=== PATIENT | male | born 1965 | race Caucasian/White ===

== ENCOUNTER 2024-03-30 10:17 | Outpatient (AMB) | payer MEDICAID, SELFPAY ==
--- NOTE | 2024-03-30 10:35 | ORTHONT_ITS ---
Vital signs 03/30/24 10:40 Height 1.68 m Height Method Stated Weight 73.964 kg Weight Measurement Method Standing Scale BMI 26.2 BP 118/75 Blood Pressure Source Automatic Cuff Blood Pressure Location Right Upper Arm Position Sitting Respiration 18 Pulse 75 Pulse Source Monitor Temp 98.3 F Temp Source Temporal Artery Scan Pulse Oximetry (%) 97 Oxygen Delivery Method Room Air Med/Allergies Allergies & Medications Allergies ibuprofen Allergy (Verified 03/30/24 10:41) Medication Reconciliation amlodipine 5 mg tablet 5 mg PO QDAY 03/30/24 [History Confirmed 03/30/24] aspirin 81 mg tablet,delayed release 81 mg PO QDAY 03/30/24 [History Confirmed 03/30/24] atorvastatin 40 mg tablet 40 mg PO QPM 03/30/24 [History Confirmed 03/30/24] clopidogrel 75 mg tablet (Plavix) 75 mg PO QDAY 03/30/24 [History Confirmed 03/30/24] lisinopril 40 mg tablet 40 mg PO QDAY 03/30/24 [History Confirmed 03/30/24] propranolol 10 mg tablet 5 mg PO BID 03/30/24 [History Confirmed 03/30/24] Subjective Visit Visit for: follow up visit (PRE OP) and knee (LEFT) Immunization / Flu Flu Vaccine in the Last 12 Months: No Flu Vaccine Exclusion Criteria: No Exclusion Criteria History of Present Illness Chief complaint: PRE OP LEFT TKA Yosvany is a pleasant 58-year-old male who has a longstanding history of bilateral knee pain. I previously saw him at a previous office. He has end- stage arthritis. He did have a recent stroke and we have still been treating conservatively until he is fully optimized for surgery. He reports that he believes that his transcription typist said that he can get surgery. Have given him a form for his transcription typist to fill out. He is on aspirin and Plavix. He is supposed to stop Plavix 7 days before surgery Personal History Red flag PMH: none Pain Pain level (0-10): 7 Pain duration: CONSTANT Pain location: inside (medial) Pain quality: sharp and aching Pain timing: night and increases with activity Associated signs & symptoms: weakness and stiffness Ambulatory data Ambulatory device: cane Treatments Improvement with previous injections: No Improvement with PT: No Improvement with NSAIDS: no Review of Systems Review of Systems: All systems negative unless otherwise noted in HPI. Exam Exam Patient is in no acute distress and is cooperative with the examination today. Breathing is nonlabored. In no respiratory distress. Bilateral extremities were evaluated and demonstrates sensation intact to light touch. Palpable pedal pulses are present. No significant edema is present. Bilateral hips were examined. The patient has no pain with log roll of the hips. Internal rotation to 30 degrees and external rotation to 30 degrees is painless. Negative FADIR. The left knee was examined. The left knee is in [varus] alignment. Range of motion from [0-115] degrees. Knee is stable to varus and valgus as well as AP translation with <5mm. Patient has a [negative] McMurrays. There is [no] pain with patellofemoral compression and [no] crepitus noted. The knee is [tender] to palpation [medially]. The right knee was also examined. The right knee is in [varus] alignment. Range of motion from [0-120] degrees. Knee is stable to varus and valgus as well as AP translation with <5mm. Patient has a [negative] McMurrays. There is [no] pain with patellofemoral compression and [no] crepitus noted. The knee is [tender] to palpation [medially]. Assessment and Plan Problem List (1) Degenerative arthritis of knee, bilateral: Status: Acute Plan: 58-year-old male with bilateral knee pain and bilateral knee arthritis. He has recent stroke. His left knee pain has significantly worsened The nature and purpose of the total knee replacement, alternative method(s) of t reatment, the material risks involved, and the possibility of complications were fully explained to the patient. The patient does NOT have any of the following contraindications to TKA: - Active infection of the knee joint, OR - Active systemic bacteremia, OR - Active skin infection or open wound at surgical site, OR - Neuropathic arthritis, OR - Severe, rapidly progressive neurological disease, OR - Severe medical condition that makes risks of surgery outweigh the potential benefit The patient was told the most common risks and complications associated with a total knee replacement include, but are not limited to: blood clots in the leg, fatal pulmonary embolism, dislocation of the prosthesis, intraoperative and postoperative fractures of the femur or tibia, infection, failure of the pros thesis or grafting materials, complications from anesthesia, reactions to blood transfusions, postoperative leg length inequality, instability of the knee replacement, nerve damage or injury, vascular injury, delayed wound healing, infection, other injury or even . In addition, there are risks associated with anesthesia given during this operation. Also, the patient was told that after undergoing a total knee replacement there may still be persistent pain or disability. The patient was informed that the success of this operation in part depends upon the mechanical devices which are going to be implanted and that these devices can fail or malfunction, and may need to be repaired or replaced and there are no guarantees as to the longevity of this device or its parts and that it or its parts could fail prematurely. The patient was also notified that during the course of surgery, there may be a need to use bone graft from donors, and that any bone graft used will be carefully screened for communicable diseases, including AIDS, hepatitis, Romie-Creutzfeldt, or other diseases, but despite the screening procedures, there is a small chance that they could contract one of these diseases. Finally, the patient was asked to follow completely and fully with all advice and recommended treatments, and that recovery and ultimate outcome are affected by their compliance with recommended treatment. We discussed the risks, benefits and treatment alternatives, and the patient is interested in proceeding with surgery. We will try to set this up as expeditiously as possible. (2) Bilateral knee pain: Status: Acute Office Procedures GNS Level of Care Nursing/Assessment Patient Status: Established Patient Nursing Assessment/Reassesment: Medication Reconciliation, Update PMH in EMR and Vital Signs Coordination of Care: Complex Care and Chronic Disease 1-5, Education Complex Pt/Fam, Consent,records obtained, informed consent, 1 Ins Authorization, Lab and Imaging orders, Results/Orders obtained and Staff clarify orders Established Patient Charge Established Patient Point Assignment: 125 Established Patient Point Charge: EP Level 4 (120-155) Past Medical History Past Medical History Have you ever been diagnosed with any of the following: Neurological Problems Cerebrovascular Accident (CVA): Yes (September 2022) Cardiology Problems Coronary Artery Disease: Yes Peripheral Vascular Disease: Yes (50% right internal carotid stenosis) Congestive Heart Failure: No Hypertension: Yes Respiratory Problems Chronic Obstructive Pulmonary Disease (COPD): No Smoking: No Smoking Exposure: No Stomache/Intestinal Problems Hepatitis: No Genital/Urinary Problems Renal Disease: No Musculoskeletal Problems Arthritis: Yes Head,Eye,Nose,Throat Problems Cataracts: Yes Endocrine Problems Diabetes Mellitus Type 1: No Diabetes Mellitus Type 2: No Other Problems Hospitalization: Yes (stroke) Shingles: No Blood Transfusions: No Anesthesia Reactions: No Chicken Pox: Yes Cancer: No
[2024-03-30 10:40] VITALS: BP 118/75; PULSE 75; RESP 18; TEMP 36.8; O2SAT 97; BMI 26.2
== END 2024-03-30 10:58 | disposition home or self-care (01) ==
PROVIDERS: PCP Internal Medicine; Referring Provider Internal Medicine; Supervising Provider Orthopaedic Surgery Adult Reconstructive Orthopaedic Surgery; Visit Provider Orthopaedic Surgery Adult Reconstructive Orthopaedic Surgery
DX: M17.0 Bilateral primary osteoarthritis of knee (principal); M25.561 Pain in right knee; M25.562 Pain in left knee; I10 Essential (primary) hypertension; I25.10 Atherosclerotic heart disease of native coronary artery without angina pectoris; Z86.73 Personal history of transient ischemic attack (TIA), and cerebral infarction without residual deficits
CPT/HCPCS: 99214; G0463

== ENCOUNTER → 2024-03-30 | Outpatient (CLI) | payer MEDICAID, SELFPAY ==
--- NOTE | 2024-03-30 11:52 | XR_ITS ---
Examination: CT left lower extremity, without contrast. 2-D sagittal reconstructions. 2-D coronal reconstructions. 3-D reconstructions. Date and time of exam:March 30, 2024 1357 hours INDICATIONS: Left knee pain osteoarthritis one year CTDI: vol (mGy):9.03 DLP: (mGycm):723 Technique: Multiple 1.25 mm axial sections of the left lower extremity without intravenous contrast have been obtained. 2-D sagittal and coronal reconstructions have been obtained. 3-D reconstructions have been obtained. Low dose protocols were performed. One or more of the following dose reduction techniques were used; automated exposure control, adjustment of the mA and/or KV according to patient size, use of iterative reconstruction technique. Findings: Moderate osteopenia Mild narrowing left hip joint No left hip fracture or dislocation, no avascular necrosis Advanced left knee tricompartment osteoarthritis, severe narrowing medial lateral joint spaces No fracture No patellar dislocation IMPRESSION: Severe left knee tricompartment osteoarthritis
== END | disposition home or self-care (01) ==
LOC: CCTX 11:33
PROVIDERS: PCP Internal Medicine; Referring Provider Orthopaedic Surgery Adult Reconstructive Orthopaedic Surgery; Visit Provider Orthopaedic Surgery Adult Reconstructive Orthopaedic Surgery
DX: M17.12 Unilateral primary osteoarthritis, left knee (principal)
CPT/HCPCS: 73700

== ENCOUNTER 2024-04-03 07:30 | Day surgery (SDC) | payer MEDICAID, SELFPAY ==
[2024-03-30 09:10] VITALS: BMI 26.3
--- NOTE | 2024-03-30 09:27 | EKG_ITS ---
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
[2024-03-30 10:10] LABS: Basophils % (Auto) 0 % (0-2.5); Eosinophils # (Auto) 0.1 Thou/mm3 (0.0-0.5); Eosinophils % (Auto) 1 % (0-10); Hemoglobin 14.7 g/dL (13.5-16.0); Immature Granulocytes % (Auto) 0 % (0-0); Immature Granulocytes Auto 0.03 Thou/mm3 (0.00-0.00); Lymphocytes # (Auto) 2.2 Thou/mm3 (1.0-4.8); Lymphocytes % (Auto) 21 % (10-50); Mean Corpuscular HGB Conc 33.4 g/dl (31.0-37.0); Mean Corpuscular Hemoglobin 29.6 pg (25.0-35.0); Mean Corpuscular Volume 89 fL (80-100); Monocytes # (Auto) 0.6 Thou/mm3 (0.0-0.8); Monocytes % (Auto) 6 % (0-12); Neutrophils # (Auto) 7.5 Thou/mm3 (1.8-7.7); Neutrophils % (Auto) 72 % (37-80); Nucleated Red Blood Cell % 0 /100 WBC (0); Platelet Count 299 Thou/mm3 (140-440); RDW Standard Deviation 40.1 fL (35.1-43.9); Red Blood Count 4.96 Miln/mm3 (4.50-5.90); White Blood Count 10.5 Thou/mm3 (3.8-10.6)
[2024-03-30 10:22] LABS: Alanine Aminotransferase 29 U/L (10-49); Albumin, Serum 5.1 gm/dL (3.5-5.0); Albumin/Globulin Ratio 1.9 (1.2-2.2); Alkaline Phosphatase 166 U/L (46-116); Anion Gap 6 (7-16); Aspartate Amino Transferase 27 U/L (0-34); BUN/Creatinine Ratio 20 Ratio (12-20); Blood Urea Nitrogen 14 mg/dL (9-23); Calcium 10.1 mg/dL (8.3-10.6); Calcium (Corrected) 10.1 mg/dL (8.5-10.1); Carbon Dioxide 30.4 mMol/L (20.0-31.0); Chloride 100 mMol/L (98-107); Creatinine (Component) 0.7 mg/dL (0.6-1.3); Estimated Creatinine Clearance 103.8 mL/min (>60); Globulin 2.7 gm/dL (2.3-3.5); Glucose 103 mg/dL (74-106); Osmolality,Calculated 272 (275-295); Sodium 136 mMol/L (136-145); Total Protein 7.8 gm/dL (5.7-8.2); eGFR > 60 See Note
[2024-03-30 10:29] LABS: INR 1.1 (0.9-1.3); Partial Thromboplastin Time 28.5 Seconds (22.0-36.0); Prothrombin Time 11.9 Seconds (9.0-12.2)
[2024-04-03] VITALS (15 sets, daily range): BP systolic 121–166; BP diastolic 69–98; PULSE 67–91; RESP 12–18; TEMP 36.1–37.2; O2SAT 94–100; BMI 25.8
[2024-04-03] MEDS: ACETAMINOPHEN 325 MG TABLET 650 MG PO (08:22)
[2024-04-03] MEDS: PREGABALIN 75 MG CAPSULE PO (08:24)
[2024-04-03] MEDS: RINGERS LACTATED 1000 ML 1,000 ML 20 ML IV (08:25)
--- NOTE | 2024-04-03 10:39 | ESOP_ITS ---
Date of Procedure 04/03/24 Pre Op Diagnosis left knee osteoarthritis Post Op Diagnosis left knee osteoarthritis Procedure left total knee replacement Findings full thickness cartilage loss and osteophytes Procedure Description Indication: The patient is a 58 year old who has a long history of left knee pain. X-rays show degenerative arthritis involving the knee. Over the past several years the patient has had increasing pain, progressive limitation in function. He has failed conservative measures including activity modification, physical therapy, injections, anti-inflammatories, and assistive devices. After a lengthy discussion of the risks and benefits, the patient presents now for total knee replacement. The nature and purpose of the total knee replacement, alternative method(s) of treatment, the material risks involved, and the possibility of complications were fully explained to the patient. The patient was told the most common risks and complications associated with a total knee replacement include, but are not limited to blood clots in the leg, fatal pulmonary embolism, dislocation of the prosthesis, intraoperative and postoperative fractures of the femur or tibia, infection, failure of the prosthesis or grafting materials, complications from anesthesia, reactions to blood transfusions, postoperative leg length inequality, instability of the knee replacement, nerve damage or injury, vascular injury, delayed wound healing, infections, other injury or even . In addition, there are risks associated with anesthesia given during this operation, temporary or permanent numbness on the skin lateral to the incision can be a complication unique to total knee surgery, and kneeling can be painful after knee replacement surgery. Also, the patient was told that after undergoing a total knee replacement there may still be pain or disability. We discussed with the patient that we will be using a robot-assisted technology. We discussed that there is a possibility of converting to manual instrumentation. The patient was informed that the success of this operation in part depends upon the mechanical devices which are going to be implanted and that these devices can fail or malfunction, and may need to be repaired or replaced and there are no guarantees as to the longevity of this device or its part and that it or its parts could fail prematurely. Finally, the patient was asked to follow completely and fully with all advice and recommended treatments, and that recovery and ultimate outcome are affected by their compliance with recommended treatment. Surgical technique: Patient was marked and consented in the pre-operative area. The patient was brought to the operating room and placed on the operating table in a supine position. Prior to positioning, a timeout procedure was performed between the surgeon, the anesthesiologist, and the nursing staff where the patient and the operative side were identified and confirmed. After adequate general anesthetic was obtained, the left lower extremity was prepped and draped in the usual sterile fashion. A weight based dose of Cefazolin were administered within 1 hour prior to incision. The robot was preregistered and calirated before the incision. The extremity was exsanguinated with an esmarch badge and tourniquet inflated to 250mmHg. A midline incision was made. A median parapatellar arthrotomy was made. The patella was subluxed laterally. A medial release was performed to expose the medial tibia. His femoral and tibial pins were placed through an intra incisional manner for both cases. Every effort was made to ensure that the distalmost aspect of the pin was hung in the second cortex. The arrays were then tightened several times to ensure that it was fixed for the remainder of the case. Both femoral and tibial checkpoints were then placed. We then went through the registration process of the bone. We then assessed the knee deformity and attempted to correct it. We also used the robot to aid in judging laxity in both extension and flexion. Final based on laxity and alignment we changed the preoperative assessment to obtain proper proper implant positioning and to correct deformity. Attention was then placed to the tibia. We made a tibial cut using the robot ensuring that both the MCL and the patella tendon were protected with retractors. We then went to the femur and made the posterior cut followed by the anterior cut and the anterior chamfer. The bone was then removed and we made a distal femur cut and a posterior chamfer cut. We verified all cuts. A trial reduction was performed with a size 5 femoral component and a size 5 keeled tibial component. The patella tracked centrally, and no lateral re tinacular release was necessary. The trial implants were removed. The arrays, pins, and checkpoints were all removed. We performed a verification that all pins were removed. The cut bone surfaces were lavaged. A size 5 left femoral component, a size 5 keeled tibial component, were impacted into position. The knee was felt to be well balanced in the sagittal and coronal plane. The final 5x12 mm cruciate- substituting articular insert was impacted into the tibial tray. The knee was brought out to full extension, flexed up to 120 degrees. It was stable to varus and valgus stress and appropriately balanced in flexion and extension. The wounds were copiously irrigated following deflation of tourniquet. The medial retinaculum was reapproximated with #1 vicryl and quill. The subcutaneous tissues were closed with 0 and 2-0 interrupted Vicryl. The skin was closed with 3-0 Monofilament V loc suture. A sterile dressing was applied. The patient was transferred to a bed and brought to recovery in stable condition. The patient tolerated the procedure well. There were no intraoperative complications. Sponge and needle counts were correct times 2. As the attending surgeon, I attest I was present and performed the entire operation. Grafts/Implants Size 5 CR Femur Size 5 Tibia 12mm poly CS Anesthesia GETA Implants arpit triathlon Pathology / specimen None Pathology comment: none Estimated Blood Loss 150 Surgeon Pepe Duron MD Surgical Staff Operation Date: 04/03/24 10:00 Case Staff TRANSACTION ADVISORY SERVICES MANAGER: Manpreet Dailey RNbakery deliverer: Larry Reynaga
--- NOTE | 2024-04-03 10:56 | SUR.PHASEI ---
pt received from OR in recovery bay 7. pt obtunded, breathing unlabored on nc 6l, lma in place. v/s stable. pt dressing to left lower extremity cdi. report received from Adair HUERTAS and Rory ADEN.
--- NOTE | 2024-04-03 11:22 | XR_ITS ---
Examination: Right knee 2 views Technique : AP lateral right knee 2 views INDICATIONS: Postop knee replacement FINDINGS: Mild osteopenia Total right knee arthroplasty. Satisfactory alignment No fracture IMPRESSION: Total right knee arthroplasty with satisfactory alignment
--- NOTE | 2024-04-03 13:00 | SUR.PHASEII ---
report from nurse samuel. vss. breathing even and unlabored on room air. denies pain and nausea. dressing to left knee cdi. tolerating po liquids.
--- NOTE | 2024-04-03 13:30 | SUR.PHASEII ---
report called to nurse malik and given to nurse baker.
--- NOTE | 2024-04-03 13:30 | SUR.PHASEII ---
taken to room 350 via gurney. transferred to bed with trapeze in place. dressing remains cdi. vss. breathing even and unlabored. , daughter and nurse helena at bedside.
[2024-04-03] MEDS: oxyCODONE HCL 5 MG IR TAB 10 MG PO ×2 (14:30→20:32)
[2024-04-03] MEDS: ACETAMINOPHEN 500 MG TABLET 1000 MG PO (18:09)
[2024-04-03] MEDS: ASPIRIN EC 81 MG TABEC PO (20:32)
[2024-04-03] MEDS: HYDROmorphone INJ 2 MG/ML VIAL 0.5 MG IVP (22:05)
[2024-04-04] VITALS: BP 130/89; PULSE 102; RESP 18; TEMP 37.1; O2SAT 95
[2024-04-04] MEDS: ACETAMINOPHEN 500 MG TABLET 1000 MG PO ×2 (00:51→05:05)
[2024-04-04] MEDS: oxyCODONE HCL 5 MG IR TAB 10 MG PO ×2 (03:02→10:09)
[2024-04-04 04:00] VITALS: BP 118/83; PULSE 112; RESP 18; TEMP 37.2; O2SAT 93
[2024-04-04 07:31] VITALS: BP 123/77; PULSE 101; RESP 18; TEMP 37.2; O2SAT 94
[2024-04-04] MEDS: ASPIRIN EC 81 MG TABEC PO (08:02)
[2024-04-04] MEDS: PANTOPRAZOLE INJ 40 MG VIAL IV (08:02)
[2024-04-04 12:00] VITALS: BP 137/84; PULSE 106; RESP 18; TEMP 37.6; O2SAT 94
--- NOTE | 2024-04-04 12:04 | PC.SS ---
Patient is alert/oriented. He resides at home with spouse. Independent with ADL's. Patient has a walker at home he uses as needed. Patient admitted for left knee replacemtent. He had surgery yesterday. Patient worked with PT today. PT recommended Home Health services. Patient states his pcp: Dr. King at [facility] in [place]. Last appt. was last week. Patient's alt medical decision maker is his . Patient states he already has a walker at home. He is now requesting a 3:1 commode. Explained we need a doctor's order for this. sent 's office a request for DME. D/c orders for today.
--- NOTE | 2024-04-04 14:30 | PC.SS ---
Patient needs a 3:1 commode for home. Patient is physically incapable of utilizing regular toilet facilities because his or her diagnosis confines the patient to a single room. Patient is confined to a single level, and there is no toilet on that level; patient cannot access the toilet facilities in a timely manner due to lack of ambulation.
== END 2024-04-04 12:31 | disposition home or self-care (01) ==
LOC: S2EX 12:14 → S3NX 04-04 10:58
PROVIDERS: Anesthesiology; PCP Internal Medicine; Referring Provider Orthopaedic Surgery Adult Reconstructive Orthopaedic Surgery; Visit Provider Orthopaedic Surgery Adult Reconstructive Orthopaedic Surgery
PROC: (CPT 27447; principal; 2024-04-03 10:00)
DX: M17.12 Unilateral primary osteoarthritis, left knee (principal); Z01.810 Encounter for preprocedural cardiovascular examination
CPT/HCPCS: 27447; 36415; 73560; 80053; 85025; 85610; 85730; 87081; 93005; 97162; A4217; C1713; C1776; J0131; J0171; J0690; J1885; J2250; J2470; J2704; J2795; J3010; J3490; J7030; J7120; A4648; A4649; A9270

== ENCOUNTER 2024-04-25 12:54 | Outpatient (AMB) | payer MEDICAID, SELFPAY ==
--- NOTE | 2024-04-25 13:11 | RHCORTHONT_ITS ---
Vital signs 04/25/24 13:12 Weight 70.392 kg Weight Measurement Method Standing Scale BP 104/69 Blood Pressure Source Automatic Cuff Blood Pressure Location Right Upper Arm Position Sitting Respiration 19 Pulse 92 Pulse Source Monitor Temp 97.3 F Temp Source Temporal Artery Scan Pulse Oximetry (%) 95 Oxygen Delivery Method Room Air Med/Allergies Allergies & Medications Allergies ibuprofen Allergy (Verified 04/25/24 13:15) Medication Reconciliation amlodipine 5 mg tablet 5 mg PO QDAY 03/30/24 [History Confirmed 04/25/24] aspirin 81 mg tablet,delayed release 81 mg PO QDAY 03/30/24 [History Confirmed 04/25/24] atorvastatin 40 mg tablet 40 mg PO QPM 03/30/24 [History Confirmed 04/25/24] clopidogrel 75 mg tablet (Plavix) 75 mg PO QDAY 03/30/24 [History Confirmed 04/25/24] lisinopril 40 mg tablet 40 mg PO QDAY 03/30/24 [History Confirmed 04/25/24] propranolol 10 mg tablet 5 mg PO BID 03/30/24 [History Confirmed 04/25/24] doxycycline hyclate 100 mg tablet 100 mg PO BID #14 tabs 04/03/24 [Rx Confirmed 04/25/24] gabapentin 300 mg capsule 300 mg PO .qhs #30 caps 04/03/24 [Rx Confirmed 04/25/24] sennosides 8.6 mg-docusate sodium 50 mg tablet (Senna-S) 1 tab-cap PO QDAY #30 tabs 04/03/24 [Rx Confirmed 04/25/24] acetaminophen 500 mg tablet (Acetaminophen Extra Strength) 1,000 mg (2 x 500 mg) PO Q6H PRN pain #90 tabs 04/25/24 [Rx] cyclobenzaprine 5 mg tablet 5 mg PO QHS PRN muscle spasm #30 tabs 04/25/24 [Rx] oxycodone 5 mg tablet 5 mg PO Q6H PRN pain #28 tabs 04/25/24 [Rx] Exam Exam Patient is in no acute distress and is cooperative with the examination today. Breathing is nonlabored. In no respiratory distress. Bilateral extremities were evaluated and demonstrates sensation intact to light touch. Palpable pedal pulses are present. No significant edema is present. Bilateral hips were examined. The patient has no pain with log roll of the hips. Internal rotation to 30 degrees and external rotation to 30 degrees is painless. Negative FADIR. Left knee incision is clean dry and intact Assessment and Plan Problem List (1) History of total left knee replacement: Status: Acute Plan: Patient is doing well status post left total knee replacement. We will see him back in approximately 4 weeks Office Procedures GNS Level of Care Nursing/Assessment Patient Status: Established Patient Nursing Assessment/Reassesment: Medication Reconciliation, Update PMH in EMR and Vital Signs Coordination of Care: Complex Care and Chronic Disease 1-5, Education Complex Pt/Fam, Consent,records obtained, informed consent, 1 Ins Authorization, Results/Orders obtained and Staff clarify orders Special Needs: Language special needs Established Patient Charge Established Patient Point Assignment: 110 Established Patient Point Charge: EP Level 3 (80-115) MA Intake Visit Data Collection New Patient or Established: Established Patient (seen at [facility] within 3 years) Reason for Visit:: 2 week post op 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 PCP or OBGYN visit in last 3 months: Yes Hx Now: No Do You Feel Safe at Home: Yes Authorities Contacted: N/A Questionairres Past Medical History Past Medical History Have you ever been diagnosed with any of the following: Neurological Problems Cerebrovascular Accident (CVA): Yes (September 2022) Seizures: No Cardiology Problems Coronary Artery Disease: Yes Peripheral Vascular Disease: Yes (50% right internal carotid stenosis) Congestive Heart Failure: No Hypertension: Yes Respiratory Problems Chronic Obstructive Pulmonary Disease (COPD): No Smoking: No Smoking Exposure: No Stomache/Intestinal Problems Hepatitis: No Genital/Urinary Problems Renal Disease: No Musculoskeletal Problems Arthritis: Yes Head,Eye,Nose,Throat Problems Cataracts: Yes Endocrine Problems Diabetes Mellitus Type 1: No Diabetes Mellitus Type 2: No Psychologic Problems Depression: Yes Anxiety: Yes Other Problems Hospitalization: Yes (stroke) Shingles: No Blood Transfusions: No Anesthesia Reactions: No Chicken Pox: Yes Cancer: No Subjective Visit Visit for: follow up visit, post op #1 and knee Immunization / Flu Flu Vaccine in the Last 12 Months: Yes Flu Vaccine Exclusion Criteria: No Exclusion Criteria History of Present Illness Chief complaint: 2 week post op Aidan is 2 weeks postop status post total knee replacement. He is doing well. He has minimal pain Personal History BMI Counceling provided: No Pain Pain level (0-10): 8 Pain duration: all day Pain location: anterior and posterior Pain quality: sharp, dull and aching Pain timing: night and increases with activity Associated signs & symptoms: numbness Ambulatory data Ambulatory device: walker Treatments Improvement with previous injections: No Improvement with PT: No Improvement with NSAIDS: n/a Review of Systems Review of Systems: All systems negative unless otherwise noted in HPI.
[2024-04-25 13:12] VITALS: BP 104/69; PULSE 92; RESP 19; TEMP 36.3; O2SAT 95
== END 2024-04-25 13:36 | disposition home or self-care (01) ==
PROVIDERS: PCP Internal Medicine; Referring Provider Internal Medicine; Supervising Provider Orthopaedic Surgery Adult Reconstructive Orthopaedic Surgery; Visit Provider Orthopaedic Surgery Adult Reconstructive Orthopaedic Surgery
DX: Z96.652 Presence of left artificial knee joint (principal); I10 Essential (primary) hypertension; I25.10 Atherosclerotic heart disease of native coronary artery without angina pectoris
CPT/HCPCS: 99213; G0463

== ENCOUNTER 2024-05-23 08:01 | Outpatient (AMB) | payer MEDICAID, SELFPAY ==
[2024-05-23 08:07] VITALS: BP 127/84; PULSE 88; RESP 18; TEMP 36.4; O2SAT 98; BMI 25.5
--- NOTE | 2024-05-23 08:07 | ORTHONT_ITS ---
Vital signs 05/23/24 08:07 Height 1.68 m Height Method Stated Weight 72.121 kg Weight Measurement Method Standing Scale BMI 25.5 BP 127/84 Blood Pressure Source Automatic Cuff Blood Pressure Location Left Upper Arm Position Sitting Respiration 18 Pulse 88 Pulse Source Monitor Temp 97.5 F Temp Source Temporal Artery Scan Pulse Oximetry (%) 98 Oxygen Delivery Method Room Air Med/Allergies Allergies & Medications Allergies ibuprofen Allergy (Verified 05/23/24 08:08) Medication Reconciliation amlodipine 5 mg tablet 5 mg PO QDAY 03/30/24 [History Confirmed 05/23/24] aspirin 81 mg tablet,delayed release 81 mg PO QDAY 03/30/24 [History Confirmed 05/23/24] atorvastatin 40 mg tablet 40 mg PO QPM 03/30/24 [History Confirmed 05/23/24] clopidogrel 75 mg tablet (Plavix) 75 mg PO QDAY 03/30/24 [History Confirmed 05/23/24] lisinopril 40 mg tablet 40 mg PO QDAY 03/30/24 [History Confirmed 05/23/24] propranolol 10 mg tablet 5 mg PO BID 03/30/24 [History Confirmed 05/23/24] doxycycline hyclate 100 mg tablet 100 mg PO BID #14 tabs 04/03/24 [Rx Confirmed 05/23/24] gabapentin 300 mg capsule 300 mg PO .qhs #30 caps 04/03/24 [Rx Confirmed 05/23/24] sennosides 8.6 mg-docusate sodium 50 mg tablet (Senna-S) 1 tab-cap PO QDAY #30 tabs 04/03/24 [Rx Confirmed 05/23/24] acetaminophen 500 mg tablet (Acetaminophen Extra Strength) 1,000 mg (2 x 500 mg) PO Q6H PRN pain #90 tabs 04/25/24 [Rx Confirmed 05/23/24] cyclobenzaprine 5 mg tablet 5 mg PO QHS PRN muscle spasm #30 tabs 04/25/24 [Rx Confirmed 05/23/24] oxycodone 5 mg tablet 5 mg PO Q6H PRN pain #28 tabs 04/25/24 [Rx Confirmed 05/23/24] Exam Exam Patient is in no acute distress and is cooperative with the examination today. Breathing is nonlabored. In no respiratory distress. Bilateral extremities were evaluated and demonstrates sensation intact to light touch. Palpable pedal pulses are present. No significant edema is present. Bilateral hips were examined. The patient has no pain with log roll of the hips. Internal rotation to 30 degrees and external rotation to 30 degrees is painless. Negative FADIR. Left knee incision is clean dry and intact. Range of motion is 5 to 65 degrees Assessment and Plan Problem List (1) History of total left knee replacement: Status: Acute Plan: Patient istatus post left total knee replacement. He has stiffness in his left knee can only get to 65 degrees. I feel a firm stop. I discussed with him there are 2 options. Option 1 is to continue with physical therapy to regain his motion. Option 2 is to undergo a manipulation under anesthesia right now given his poor range of motion. We discussed the risks of both and he like to proceed. We also discussed the risk of recurrent stiffness as well as possible fracture during the manipulation. We will plan to do this is soon as possible Office Procedures GNS Level of Care Nursing/Assessment Patient Status: Established Patient Nursing Assessment/Reassesment: Medication Reconciliation, Update PMH in EMR and Vital Signs Coordination of Care: Complex Care and Chronic Disease 1-5, Education Complex Pt/Fam, Consent,records obtained, informed consent, Results/Orders obtained and Staff clarify orders Established Patient Charge Established Patient Point Assignment: 95 Established Patient Point Charge: EP Level 3 (80-115) MA Intake Visit Data Collection New Patient or Established: Established Patient (seen at [facility] within 3 years) Reason for Visit:: L TKA FOLLOW UP Seen by Clinical Staff ONLY (RN/MA): No 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: No PCP or OBGYN visit in last 3 months: Yes Hx Now: No Do You Feel Safe at Home: Yes Authorities Contacted: N/A Questionairres Past Medical History Past Medical History Have you ever been diagnosed with any of the following: Neurological Problems Cerebrovascular Accident (CVA): Yes (September 2022) Seizures: No Cardiology Problems Coronary Artery Disease: Yes Peripheral Vascular Disease: Yes (50% right internal carotid stenosis) Congestive Heart Failure: No Hypertension: Yes Respiratory Problems Chronic Obstructive Pulmonary Disease (COPD): No Smoking: No Smoking Exposure: No Stomache/Intestinal Problems Hepatitis: No Genital/Urinary Problems Renal Disease: No Musculoskeletal Problems Arthritis: Yes Head,Eye,Nose,Throat Problems Cataracts: Yes Endocrine Problems Diabetes Mellitus Type 1: No Diabetes Mellitus Type 2: No Psychologic Problems Depression: Yes Anxiety: Yes Other Problems Hospitalization: Yes (stroke) Shingles: No Blood Transfusions: No Anesthesia Reactions: No Chicken Pox: Yes Cancer: No Surgical History Total Knee Replacement: Yes (LEFT 03/2024) Subjective Visit Visit for: follow up visit and knee (LEFT) Immunization / Flu Flu Vaccine in the Last 12 Months: No Flu Vaccine Exclusion Criteria: No Exclusion Criteria History of Present Illness Chief complaint: Left knee pain Patricio is a 58-year-old male with a left knee pain and a total knee replacement 6 weeks ago. He did obtain x-rays. This demonstrates a cementless total knee replacement the liner position. He reports that he is stiff and he is working with therapy. Pain Pain level (0-10): 2 Pain duration: ON AND OFF Pain location: inside (medial) Pain quality: aching and other (specify) (SWELLING) Associated signs & symptoms: none Ambulatory data Ambulatory device: cane Treatments Improvement with previous injections: No Improvement with PT: No Improvement with NSAIDS: no Review of Systems Review of Systems: All systems negative unless otherwise noted in HPI.
== END 2024-05-23 08:28 | disposition home or self-care (01) ==
LOC: HODSRG 08:01
PROVIDERS: Supervising Provider Orthopaedic Surgery Adult Reconstructive Orthopaedic Surgery; Visit Provider Orthopaedic Surgery Adult Reconstructive Orthopaedic Surgery
DX: Z96.652 Presence of left artificial knee joint (principal); M25.662 Stiffness of left knee, not elsewhere classified; I10 Essential (primary) hypertension; I25.10 Atherosclerotic heart disease of native coronary artery without angina pectoris; Z86.73 Personal history of transient ischemic attack (TIA), and cerebral infarction without residual deficits
CPT/HCPCS: 99213; G0463

== ENCOUNTER 2024-05-31 05:40 | Day surgery (SDC) | payer MEDICAID, SELFPAY ==
[2024-05-26 09:42] VITALS: BMI 25.0
[2024-05-26 10:29] LABS: Basophils # (Auto) 0.1 Thou/mm3 (0.0-0.2); Basophils % (Auto) 1 % (0-2.5); Eosinophils # (Auto) 0.2 Thou/mm3 (0.0-0.5); Eosinophils % (Auto) 2 % (0-10); Hematocrit 39.9 % (41.0-53.0); Hemoglobin 12.9 g/dL (13.5-16.0); Immature Granulocytes % (Auto) 0 % (0-0); Immature Granulocytes Auto 0.02 Thou/mm3 (0.00-0.00); Lymphocytes # (Auto) 1.8 Thou/mm3 (1.0-4.8); Lymphocytes % (Auto) 18 % (10-50); Mean Corpuscular HGB Conc 32.3 g/dl (31.0-37.0); Mean Corpuscular Hemoglobin 27.9 pg (25.0-35.0); Mean Corpuscular Volume 86 fL (80-100); Monocytes # (Auto) 0.7 Thou/mm3 (0.0-0.8); Monocytes % (Auto) 7 % (0-12); Neutrophils # (Auto) 7.1 Thou/mm3 (1.8-7.7); Neutrophils % (Auto) 73 % (37-80); Nucleated Red Blood Cell % 0 /100 WBC (0); Platelet Count 350 Thou/mm3 (140-440); RDW Standard Deviation 38.9 fL (35.1-43.9); Red Blood Count 4.62 Miln/mm3 (4.50-5.90); White Blood Count 9.8 Thou/mm3 (3.8-10.6)
[2024-05-26 10:37] LABS: INR 1.1 (0.9-1.3); Partial Thromboplastin Time 29.4 Seconds (22.0-36.0); Prothrombin Time 12.1 Seconds (9.0-12.2)
[2024-05-26 11:02] LABS: Alanine Aminotransferase 13 U/L (10-49); Albumin, Serum 5.2 gm/dL (3.5-5.0); Alkaline Phosphatase 146 U/L (46-116); Anion Gap 8 (7-16); Aspartate Amino Transferase 19 U/L (0-34); BUN/Creatinine Ratio 23 Ratio (12-20); Bilirubin,Total 0.6 mg/dL (0.3-1.2); Blood Urea Nitrogen 14 mg/dL (9-23); Calcium 10.2 mg/dL (8.3-10.6); Calcium (Corrected) 10.2 mg/dL (8.5-10.1); Carbon Dioxide 30.2 mMol/L (20.0-31.0); Chloride 100 mMol/L (98-107); Creatinine (Component) 0.6 mg/dL (0.6-1.3); Estimated Creatinine Clearance 125.5 mL/min (>60); Globulin 2.6 gm/dL (2.3-3.5); Glucose 95 mg/dL (74-106); Osmolality,Calculated 276 (275-295); Potassium 4.3 mMol/L (3.4-5.1); Sodium 138 mMol/L (136-145); Total Protein 7.8 gm/dL (5.7-8.2); eGFR > 60 See Note
--- NOTE | 2024-05-30 14:03 | SUR.PREOP ---
Pt notified to come in tomorrow at 0545 for procedure.
[2024-05-31] VITALS (7 sets, daily range): BP systolic 119–137; BP diastolic 71–80; PULSE 79–99; RESP 15–20; TEMP 36.2–37.3; O2SAT 96–98; BMI 24.1
[2024-05-31] MEDS: ACETAMINOPHEN 325 MG TABLET 650 MG PO (06:35)
[2024-05-31] MEDS: RINGERS LACTATED 1000 ML 1,000 ML 20 ML IV (06:35)
[2024-05-31] MEDS: MELOXICAM 7.5 MG TABLET PO (06:35)
[2024-05-31] MEDS: PREGABALIN 75 MG CAPSULE PO (06:37)
--- NOTE | 2024-05-31 07:44 | ESOP_ITS ---
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 I used a trader fixed income and he stated today that he did not work for the first 2 weeks because he was afraid. He has a lot of anxiety and this may have contributed to his stiffness. We thus discussed manipulation under anesthesia as a reasonable option. We did discuss that the risk of the surgery include fracture. In addition extensor mechanism rupture is a possibility Procedure in detail: The patient was brought to the operating room and a surgical timeout was performed. We verified the correct leg. Preoperative range of motion was 0 to 30 degrees. We took his leg in flexion extension and manipulated him in flexion. General flexion force was applied and we were able to get range of motion from 0 to 115 degrees. We did take a video of his knee in flexion from 0 to 115 degrees and show the family postoperatively. The patient did well. He can go home today Anesthesia GETA Pathology / specimen None Pathology comment: none Estimated Blood Loss 0 Disposition same day Surgeon Pepe Duron MD Surgical Staff Operation Date: 05/31/24 07:30 <No data on this case meets the specified criteria>
--- NOTE | 2024-05-31 07:45 | SUR.PHASEII ---
Pt. arrived to recovery via gurney, eyes closed, responds to verbal commands, VSS, no c/o pain or nausea at this time, lung sounds clear, equal expansion vannessa., pt. is coughing, no bleeding/redness/swelling noted to left knee, pedal pulses present vannessa., cap refill <3 seconds, IV flushed and patent. Report received from Juan Manuel HUERTAS and Dr. Peña.
--- NOTE | 2024-05-31 08:00 | SUR.PHASEII ---
Report given to Dominga HUERTAS on pt. s/p procedure, pt. stable no c/o pain or nausea.
--- NOTE | 2024-05-31 08:30 | SUR.PHASEII ---
0830: Pt. AAOx4, vitals stable, breathing unlabored, no complaint of pain or nausea, no dressing in place, no active bleed noted, pt. tolerated sips of water well, pt. ambulated to wheelchair with steady gait and no assist, no complications. Gave discharge instructions to the pt. and his ride, both verbalized understanding and had no further questions. Pt. left with all personal belongings. Notified MD Duron than pt. left withouth XR, he stated if nurse unable to get a hold of him to come back for XR, that it was ok. Nurse attempted to call pt. family. Pt. family did not cone picker phone.
--- NOTE | 2024-05-31 11:27 | PC.PT ---
Patient is already D/C from the hospital. He was able to ambulate to the wheelchair so Physical Therapy was not contacted to see the patient.
== END 2024-05-31 08:30 | disposition home or self-care (01) ==
PROVIDERS: Anesthesiology; PCP Internal Medicine; Referring Provider Orthopaedic Surgery Adult Reconstructive Orthopaedic Surgery; Visit Provider Orthopaedic Surgery Adult Reconstructive Orthopaedic Surgery
PROC: (CPT 27570; principal; 2024-05-31 07:30)
DX: M24.662 Ankylosis, left knee (principal)
CPT/HCPCS: 27570; 36415; 80053; 85025; 85610; 85730; J2704; J2919; J3010; J3490; J7120; A9270

== ENCOUNTER 2024-08-08 07:57 | Outpatient (AMB) | payer MEDICAID, SELFPAY ==
[2024-08-08 08:20] VITALS: BP 136/84; PULSE 96; RESP 1; TEMP 36.4; O2SAT 100; BMI 23.7
--- NOTE | 2024-08-08 08:20 | PD.ORTHCLVIS ---
Vital signs 08/08/24 08:20 Height 1.7 m Height Method Stated Weight 68.521 kg Weight Measurement Method Standing Scale BMI 23.7 BP 136/84 H Blood Pressure Source Automatic Cuff Blood Pressure Location Left Upper Arm Position Sitting Respiration 1 L Pulse 96 Pulse Source Monitor Temp 97.6 F Temp Source Temporal Artery Scan Pulse Oximetry (%) 100 Oxygen Delivery Method Room Air Med/Allergies Allergies & Medications Allergies ibuprofen Allergy (Verified 08/08/24 08:21) Medication Reconciliation amlodipine 5 mg tablet 5 mg PO QDAY 03/30/24 [History Confirmed 08/08/24] atorvastatin 40 mg tablet 40 mg PO QPM 03/30/24 [History Confirmed 08/08/24] clopidogrel 75 mg tablet (Plavix) 75 mg PO QDAY 03/30/24 [History Confirmed 08/08/24] lisinopril 40 mg tablet 40 mg PO QDAY 03/30/24 [History Confirmed 08/08/24] propranolol 10 mg tablet 5 mg PO BID 03/30/24 [History Confirmed 08/08/24] cyclobenzaprine 5 mg tablet 5 mg PO QHS PRN muscle spasm #30 tabs 04/25/24 [Rx Confirmed 08/08/24] acetaminophen 500 mg tablet (Acetaminophen Extra Strength) 1,000 mg (2 x 500 mg) PO Q6H PRN pain #90 tabs 07/14/24 [Rx Confirmed 08/08/24] oxycodone 5 mg tablet 5 mg PO Q6H PRN pain #28 tabs 07/14/24 [Rx Confirmed 08/08/24] Exam Exam Patient is in no acute distress and is cooperative with the examination today. Breathing is nonlabored. In no respiratory distress. Bilateral extremities were evaluated and demonstrates sensation intact to light touch. Palpable pedal pulses are present. No significant edema is present. Bilateral hips were examined. The patient has no pain with log roll of the hips. Internal rotation to 30 degrees and external rotation to 30 degrees is painless. Negative FADIR. Left knee incision is clean dry and intact. Range of motion is 5 to 95 degrees Assessment and Plan Problem List (1) History of total left knee replacement: Status: Acute Plan: Patient istatus post left total knee replacement. We underwent manipulation under anesthesia 6 weeks ago. He is working with therapy. His range of motion is better and his right knee hurts worse than his left. I discussed with him I will hold off on doing the right knee until he is fully recovered Office Procedures GNS Level of Care Nursing/Assessment Patient Status: Established Patient Nursing Assessment/Reassesment: Medication Reconciliation, Update PMH in EMR and Vital Signs Coordination of Care: Complex Care and Chronic Disease 1-5, Education Complex Pt/Fam, Consent,records obtained, informed consent, Results/Orders obtained and Staff clarify orders Established Patient Charge Established Patient Point Assignment: 95 Established Patient Point Charge: EP Level 3 (80-115) MA Intake Visit Data Collection New Patient or Established: Established Patient (seen at [facility] within 3 years) Reason for Visit:: F/U KNEE MANIPULATION Seen by Clinical Staff ONLY (RN/MA): No 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 PCP or OBGYN visit in last 3 months: Yes Hx Now: No Do You Feel Safe at Home: Yes Authorities Contacted: N/A Questionairres Past Medical History Past Medical History Have you ever been diagnosed with any of the following: Neurological Problems Cerebrovascular Accident (CVA): Yes (September 2022) Seizures: No Cardiology Problems Coronary Artery Disease: Yes Peripheral Vascular Disease: Yes (50% right internal carotid stenosis) Hypercholesterolemia: Yes Congestive Heart Failure: No Hypertension: Yes Respiratory Problems Chronic Obstructive Pulmonary Disease (COPD): No Smoking: No Smoking Exposure: No Stomache/Intestinal Problems Hepatitis: No Genital/Urinary Problems Renal Disease: No Musculoskeletal Problems Arthritis: Yes Head,Eye,Nose,Throat Problems Cataracts: Yes Endocrine Problems Diabetes Mellitus Type 1: No Diabetes Mellitus Type 2: No Psychologic Problems Depression: Yes Anxiety: Yes Other Problems Hospitalization: Yes (stroke) Shingles: No Blood Transfusions: No Blood Transfusion Reaction: No Anesthesia Reactions: No Chicken Pox: Yes Cancer: No Surgical History Total Knee Replacement: Yes (LEFT 03/2024) Subjective Visit Visit for: follow up visit and knee (MANIPULATION) Immunization / Flu Flu Vaccine in the Last 12 Months: No Flu Vaccine Exclusion Criteria: No Exclusion Criteria History of Present Illness Chief complaint: Left knee replacement Everton is a 59-year-old male status post left total knee replacement 5 months ago. He did have stiffness in the morning and epilation anesthesia. He now has motion past 90 degrees.. He is continue to work with therapy. He reports his right knee hurts him much more now Been the recently replaced left knee Pain Pain level (0-10): 2 Pain duration: ON AND OFF Pain location: posterior Pain quality: aching Pain timing: increases with activity Associated signs & symptoms: numbness Ambulatory data Ambulatory device: cane Treatments Improvement with previous injections: No Improvement with PT: No Improvement with NSAIDS: no Review of Systems Review of Systems: All systems negative unless otherwise noted in HPI.
== END 2024-08-08 08:41 | disposition home or self-care (01) ==
LOC: HODSRG 07:57
PROVIDERS: PCP Internal Medicine; Referring Provider Internal Medicine; Supervising Provider Orthopaedic Surgery Adult Reconstructive Orthopaedic Surgery; Visit Provider Orthopaedic Surgery Adult Reconstructive Orthopaedic Surgery
DX: Z96.652 Presence of left artificial knee joint (principal); I10 Essential (primary) hypertension; E78.00 Pure hypercholesterolemia, unspecified
CPT/HCPCS: 99213; G0463